=== PATIENT | female | born 1980 | race Caucasian/White ===

== ENCOUNTER 2020-02-05 23:47 | Inpatient (IN) ==
[2020-02-06 00:34] LABS: Basophils # (auto) 0.03 K/uL (0-0.2); Basophils % (auto) 0.3 %; Eosinophils # (auto) 0.27 K/uL (0-0.5); Eosinophils % (auto) 2.9 %; Hematocrit (blood only) 38.9 % (37-47); Hemoglobin 13.4 g/dL (12.0-16.0); Immature Granulocytes # (auto) 0.02 K/uL (0.00-0.02); Immature Granulocytes % (auto) 0.2 %; Lymphocytes # (auto) 3.35 K/uL (1.2-3.4); Lymphocytes % (auto) 35.7 %; Mean Corpuscular Hemoglobin 31.2 pg (25-34); Mean Corpuscular Hgb Conc 34.4 g/dL (32-36); Mean Corpuscular Volume 90.7 fL (80-100); Mean Platelet Volume 9.8 fL (7.4-10.4); Monocytes # (auto) 1.17 K/uL (0.11-0.59); Monocytes % (auto) 12.5 %; Neutrophils # (auto) 4.55 K/uL (1.4-6.5); Neutrophils % (auto) 48.4 %; Platelet Count 234 K/uL (130-400); RDW Coefficient of Variation 12.5 % (11.5-14.5); RDW Standard Deviation 41.2 fL (36.4-46.3); Red Blood Count 4.29 M/uL (4.2-5.4); White Blood Count 9.39 K/uL (4.8-10.8)
[2020-02-06 00:49] LABS: Appearance Urine Cloudy (Clear); Bacteria Urine Automated 1+ (Negative); Bilirubin Urine Negative (Negative); Blood Urine Negative (Negative); Color Urine Yellow; Epithelial Cell Urine Auto >30 /lpf (0-5); Glucose Urine UA Negative (Negative); Ketones Urine Negative (Negative); Leukocyte Esterase Urine Negative (Negative); Nitrite Urine Negative (Negative); Protein Urine Negative (Negative); Specific Gravity Urine 1.023 (1.000-1.030); Urobilinogen Urine Negative (Negative)
[2020-02-06 00:51] LABS: Albumin Level 4.1 gm/dl (3.4-5.0); BUN Creatinine Ratio 16.3 (10-20); Calcium 9.5 mg/dl (8.5-10.1); Creatinine Clr Calc Pharmacy 91.7 ml/min; Est GFR (African American) 98.6; Est GFR (Non-African American) 85.1; Potassium 3.8 mmol/L (3.5-5.1)
[2020-02-06 01:02] LABS: Albumin Globulin Ratio 1.1 (0.9-2); Bilirubin,Total 0.3 mg/dl (0.2-1); Globulin 3.9 gm/dl (2.5-4.0); Thyroid Stimulating Hormone 3.1 uIu/ml (0.300-4.500)
[2020-02-06 01:10] LABS: RBC Urine Automated 0-4 /hpf (0-4)
[2020-02-06 01:25] LABS: Amphetamines+Metham, Urine Neg (Neg); Barbiturates, Urine Neg (Neg); Benzodiazepine, Urine Neg (Neg); Cocaine, Urine Neg (Neg); MDMA (Ecstacy), Urine Neg (Neg); Methadone, Urine Neg (Neg); Opiate, Urine Neg (Neg); Phencyclidine, Urine Neg (Neg)
[2020-02-06 01:40] LABS: Acetaminophen < 2 ug/ml (10-30); Salicylate 2.8 mg/dl (2.8-20)
--- NOTE | 2020-02-06 02:32 | Emergency Department Note ---
History of Present Illness General Chief complaint: Mental Health Evaluation Stated complaint: mental health Source: patient and RN notes reviewed Mode of arrival: EMS Limitations: no limitations History of Present Illness Provider complaint: Suicidal Maximum Pain Intensity: 3 This patient is a 39-year-old female who presents to the emergency department with complaints of depression and suicidal ideation. Patient states she has intentions of overdosing on pills. Patient states she has had a suicide in the past but it was years ago. She was recently admitted to the [facility] last month, per her account. Patient denies any excessive medication ingestions, alcohol or substance abuse tonight. She denies any recent illnesses, fever, chest pain. 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 and A total of 10 systems reviewed and were otherwise negative Physical Exam Vital Signs Vital Signs - 24 hr 02/05/20 23:49 02/06/20 01:53 Temperature 36.9 C Temperature Source Oral Pulse Rate 80 Pulse Rate [Right] 75 Respiratory Rate 20 16 Respiratory Effort / Characteristics Non-Labored Spontaneous Non-Labored Spontaneous Respiratory Depth Normal Normal Blood Pressure 119/85 Blood Pressure [Left Arm] 104/77 Blood Pressure Mean 96 Blood Pressure Mean [Left Arm] 86 Blood Pressure Position [Left Arm] Sitting Pulse Oximetry 97 98 Oxygen Delivery Method Room Air Room Air Sepsis Action Taken by Nursing No Action Required Vital signs reviewed. General: Chronically ill-appearing 39-year-old female, no significant distress HEENT: No scleral icterus, PERRLA, neck supple. Atraumatic. Cardiovascular: Regular rate and rhythm, no extra sounds. Pulmonary: Clear to auscultation bilaterally, normal work of breathing. Abdomen: Soft, nontender, nondistended, positive bowel sounds. Musculoskeletal: Atraumatic, no peripheral edema. Neurologic: Patient awake alert and oriented x 3 Psych: Positive SI, negative HI Skin: Warm, dry, no rash Course Administered Medications Trazodone HCl (Desyrel) 50 mg PO HS LESTER Stop: 03/07/20 04:00 Last Admin: 02/06/20 04:56 Dose: Not Given Documented by: [id number] Medical Decision Making Differential Diagnosis Differential diagnosis: Etiologies such as psychiatric disorder, infection, hypoglycemia, electrolyte abnormalities, cardiac sources, intracerebral event, toxicological process, neurologic disorder, as well as others were entertained. Home Medications Current Medication List: was personally reviewed by me Laboratory Data Attestation: I reviewed the patient's lab results. Result diagrams: 02/06/20 00:19 02/06/20 00:19 Lab Results 02/06/20 02/06/20 02/06/20 Range/Units 00:19 00:19 00:19 WBC 9.39 (4.8-10.8) K/uL RBC 4.29 (4.2-5.4) M/uL Hgb 13.4 (12.0-16.0) g/dL Hct 38.9 (37-47) % MCV 90.7 (80-100) fL MCH 31.2 (25-34) pg MCHC 34.4 (32-36) g/dL RDW Std Deviation 41.2 (36.4-46.3) fL RDW Coeff of Megan 12.5 (11.5-14.5) % Plt Count 234 (130-400) K/uL MPV 9.8 (7.4-10.4) fL Immature Gran % (Auto) 0.2 % Neut % (Auto) 48.4 % Lymph % (Auto) 35.7 % [place] % (Auto) 12.5 % Eos % (Auto) 2.9 % Baso % (Auto) 0.3 % Immature Gran # (Auto) 0.02 (0.00-0.02) K/uL Neut # (Auto) 4.55 (1.4-6.5) K/uL Lymph # (Auto) 3.35 (1.2-3.4) K/uL [place] # (Auto) 1.17 H (0.11-0.59) K/uL Eos # (Auto) 0.27 (0-0.5) K/uL Baso # (Auto) 0.03 (0-0.2) K/uL Sodium 139 (136-145) mmol/L Potassium 3.8 (3.5-5.1) mmol/L Chloride 110 H (98-107) mmol/L Carbon Dioxide 22 (21-32) mmol/L Anion Gap 7.0 (3-11) BUN 14 (7-18) mg/dl Creatinine 0.85 (0.6-1.2) mg/dl Est Cr Clr Drug Dosing 91.7 ml/min Est GFR ( Amer) 98.6 Est GFR (Non-Af Amer) 85.1 BUN/Creatinine Ratio 16.3 (10-20) Glucose 91 (70-99) mg/dl Calcium 9.5 (8.5-10.1) mg/dl Total Bilirubin 0.3 (0.2-1) mg/dl AST 12 L (15-37) U/L ALT 29 (12-78) U/L Alkaline Phosphatase 64 (45-117) U/L Total Protein 8.0 (6.4-8.2) gm/dl Albumin 4.1 (3.4-5.0) gm/dl Globulin 3.9 (2.5-4.0) gm/dl Albumin/Globulin Ratio 1.1 (0.9-2) TSH 3.100 (0.300-4.500) uIu/ml Urine Color Urine Appearance (Clear) Urine pH (4.5-7.5) Ur Specific [place] (1.000-1.030) Urine Protein (Negative) Urine Glucose (UA) (Negative) Urine Ketones (Negative) Urine Blood (Negative) Urine Nitrite (Negative) Urine Bilirubin (Negative) Urine Urobilinogen (Negative) Ur Leukocyte Esterase (Negative) Urine WBC (Auto) (0-5) /hpf Urine RBC (Auto) (0-4) /hpf U Hyaline Cast (Auto) (0-5) /lpf U Epithel Cells (Auto) (0-5) /lpf Urine Bacteria (Auto) (Negative) Urine Yeast POC Ur Test (NEG) Salicylates 2.8 (2.8-20) mg/dl Urine Opiates Screen (Neg) Ur Methadone, Qual (Neg) Acetaminophen < 2 L (10-30) ug/ml Urine Barbiturates (Neg) Ur Phencyclidine (PCP) (Neg) U Amphetamin/Meth Scrn (Neg) MDMA (Ecstasy) Screen (Neg) U Benzodiazepines Scrn (Neg) Ur Cocaine Metabolite (Neg) U Marijuana (THC) Screen (Neg) Ethyl Alcohol mg/dL (0-3) mg/dl 02/06/20 02/06/20 02/06/20 Range/Units 00:19 00:30 00:30 WBC (4.8-10.8) K/uL RBC (4.2-5.4) M/uL Hgb (12.0-16.0) g/dL Hct (37-47) % MCV (80-100) fL MCH (25-34) pg MCHC (32-36) g/dL RDW Std Deviation (36.4-46.3) fL RDW Coeff of Megan (11.5-14.5) % Plt Count (130-400) K/uL MPV (7.4-10.4) fL Immature Gran % (Auto) % Neut % (Auto) % Lymph % (Auto) % [place] % (Auto) % Eos % (Auto) % Baso % (Auto) % Immature Gran # (Auto) (0.00-0.02) K/uL Neut # (Auto) (1.4-6.5) K/uL Lymph # (Auto) (1.2-3.4) K/uL [place] # (Auto) (0.11-0.59) K/uL Eos # (Auto) (0-0.5) K/uL Baso # (Auto) (0-0.2) K/uL Sodium (136-145) mmol/L Potassium (3.5-5.1) mmol/L Chloride (98-107) mmol/L Carbon Dioxide (21-32) mmol/L Anion Gap (3-11) BUN (7-18) mg/dl Creatinine (0.6-1.2) mg/dl Est Cr Clr Drug Dosing ml/min Est GFR ( Amer) Est GFR (Non-Af Amer) BUN/Creatinine Ratio (10-20) Glucose (70-99) mg/dl Calcium (8.5-10.1) mg/dl Total Bilirubin (0.2-1) mg/dl AST (15-37) U/L ALT (12-78) U/L Alkaline Phosphatase (45-117) U/L Total Protein (6.4-8.2) gm/dl Albumin (3.4-5.0) gm/dl Globulin (2.5-4.0) gm/dl Albumin/Globulin Ratio (0.9-2) TSH (0.300-4.500) uIu/ml Urine Color Yellow Urine Appearance Cloudy A (Clear) Urine pH 5.0 (4.5-7.5) Ur Specific [place] 1.023 (1.000-1.030) Urine Protein Negative (Negative) Urine Glucose (UA) Negative (Negative) Urine Ketones Negative (Negative) Urine Blood Negative (Negative) Urine Nitrite Negative (Negative) Urine Bilirubin Negative (Negative) Urine Urobilinogen Negative (Negative) Ur Leukocyte Esterase Negative (Negative) Urine WBC (Auto) 1-5 (0-5) /hpf Urine RBC (Auto) 0-4 (0-4) /hpf U Hyaline Cast (Auto) 1-5 (0-5) /lpf U Epithel Cells (Auto) >30 H (0-5) /lpf Urine Bacteria (Auto) 1+ H (Negative) Urine Yeast Not Reportable POC Ur Test (NEG) Salicylates (2.8-20) mg/dl Urine Opiates Screen Neg (Neg) Ur Methadone, Qual Neg (Neg) Acetaminophen (10-30) ug/ml Urine Barbiturates Neg (Neg) Ur Phencyclidine (PCP) Neg (Neg) U Amphetamin/Meth Scrn Neg (Neg) MDMA (Ecstasy) Screen Neg (Neg) U Benzodiazepines Scrn Neg (Neg) Ur Cocaine Metabolite Neg (Neg) U Marijuana (THC) Screen Neg (Neg) Ethyl Alcohol mg/dL < 3.0 (0-3) mg/dl 02/06/20 Range/Units 00:30 WBC (4.8-10.8) K/uL RBC (4.2-5.4) M/uL Hgb (12.0-16.0) g/dL Hct (37-47) % MCV (80-100) fL MCH (25-34) pg MCHC (32-36) g/dL RDW Std Deviation (36.4-46.3) fL RDW Coeff of Megan (11.5-14.5) % Plt Count (130-400) K/uL MPV (7.4-10.4) fL Immature Gran % (Auto) % Neut % (Auto) % Lymph % (Auto) % [place] % (Auto) % Eos % (Auto) % Baso % (Auto) % Immature Gran # (Auto) (0.00-0.02) K/uL Neut # (Auto) (1.4-6.5) K/uL Lymph # (Auto) (1.2-3.4) K/uL [place] # (Auto) (0.11-0.59) K/uL Eos # (Auto) (0-0.5) K/uL Baso # (Auto) (0-0.2) K/uL Sodium (136-145) mmol/L Potassium (3.5-5.1) mmol/L Chloride (98-107) mmol/L Carbon Dioxide (21-32) mmol/L Anion Gap (3-11) BUN (7-18) mg/dl Creatinine (0.6-1.2) mg/dl Est Cr Clr Drug Dosing ml/min Est GFR ( Amer) Est GFR (Non-Af Amer) BUN/Creatinine Ratio (10-20) Glucose (70-99) mg/dl Calcium (8.5-10.1) mg/dl Total Bilirubin (0.2-1) mg/dl AST (15-37) U/L ALT (12-78) U/L Alkaline Phosphatase (45-117) U/L Total Protein (6.4-8.2) gm/dl Albumin (3.4-5.0) gm/dl Globulin (2.5-4.0) gm/dl Albumin/Globulin Ratio (0.9-2) TSH (0.300-4.500) uIu/ml Urine Color Urine Appearance (Clear) Urine pH (4.5-7.5) Ur Specific [place] (1.000-1.030) Urine Protein (Negative) Urine Glucose (UA) (Negative) Urine Ketones (Negative) Urine Blood (Negative) Urine Nitrite (Negative) Urine Bilirubin (Negative) Urine Urobilinogen (Negative) Ur Leukocyte Esterase (Negative) Urine WBC (Auto) (0-5) /hpf Urine RBC (Auto) (0-4) /hpf U Hyaline Cast (Auto) (0-5) /lpf U Epithel Cells (Auto) (0-5) /lpf Urine Bacteria (Auto) (Negative) Urine Yeast POC Ur Test NEG (NEG) Salicylates (2.8-20) mg/dl Urine Opiates Screen (Neg) Ur Methadone, Qual (Neg) Acetaminophen (10-30) ug/ml Urine Barbiturates (Neg) Ur Phencyclidine (PCP) (Neg) U Amphetamin/Meth Scrn (Neg) MDMA (Ecstasy) Screen (Neg) U Benzodiazepines Scrn (Neg) Ur Cocaine Metabolite (Neg) U Marijuana (THC) Screen (Neg) Ethyl Alcohol mg/dL (0-3) mg/dl Blood Pressure Blood Pressure Findings: Normal blood pressure Blood Pressure Disposition: did not require urgent referral MDM Narrative This patient was medically evaluated and cleared for psychiatric evaluation. Patient was seen by the patient case coordinator and referred to [facility] for inpatient management of her depression/suicidal ideation. The patient has been accepted on a voluntary basis. Patient is aware of the plan and agrees. Impression & Plan Suicidal ideation, Depression Discharge Plan Visit Data *Final* Discharge Date/Time: 02/06/20 03:34 Chief Complaint: Mental Health Evaluation Stated Complaint: mental health ED Provider: Ankita Clark Discharge Problem: Suicidal ideation, Depression Patient Disposition: Admitted As Inpatient Discharge Instructions Interventions: ED Discharge Assessment Last Done: 02/06/20 03:34 Discharge Problem: Depression Qualifiers: Depression Type: unspecified Qualified Code(s): F32.9 - Major depressive disorder, single episode, unspecified
[2020-02-06] MEDS ORDERED: MAGNESIUM HYDROXIDE SUSP 30 ML UDC PO PRN (03:18)
[2020-02-06] MEDS ORDERED: BISMUTH SUBSALICYLATE PER ML OMNICELL CHARGE PO PRN (03:18)
[2020-02-06] MEDS ORDERED: ACETAMINOPHEN 325 MG TAB PO PRN (03:18)
[2020-02-06] MEDS ORDERED: SODIUM CHLORIDE 0.65% NA SOLN 45 ML (OCEAN) PRN (03:18)
[2020-02-06] MEDS ORDERED: ALUMINUM/MAGNESIUM SUSP 30 ML UDC PO PRN (03:18)
[2020-02-06] MEDS ORDERED: BENZTROPINE MESYLATE 1 MG TAB PO PRN (03:55)
[2020-02-06] MEDS ORDERED: haloperidoL 5 MG TAB PO PRN (03:55)
[2020-02-06] MEDS: TRAZODONE HCL 50 MG TAB PO SCH ×3 (04:56→22:49)
--- NOTE | 2020-02-06 08:24 | History & Physical ---
Date of Service February 06, 2020 Impression / Recommendations Impression 39-year-old female with a history of schizoaffective disorder bipolar type and multiple previous psychiatric hospitalizations at other facilities who presented with worsening mood and suicidal thoughts and was admitted voluntarily. She was just discharged from the [facility] about 2 weeks ago, and is a very limited historian. She appears cognitively impaired, possibly borderline no actual functioning. She is unable to contract for safety outside of the hospital and inpatient treatment is medically necessary. It will be very helpful to get collateral information from outpatient providers, friends, or family, as she has not been treated here before and we do not know her treatment history. (1) Schizoaffective disorder, bipolar type: 02/05 -current episode depressed. Poorly able to describe symptoms, time course, and stressors. -Records from [facility] reviewed; attempt to get outpatient records, but it appears she has been seen at multiple places recently and we will need to clarify this. Attempt to get collateral from her roommate or other friend or family member. -Continue most recent known psychotropic medications (from [facility] discharge 01/16/2020, while awaiting more recent outpatient records): Propanolol 10 mg daily for anxiety, trazodone 50 mg at bedtime (with additional 50 mg dose if needed for insomnia), and trihexyphenidyl 2 mg daily. We will need to contact her pharmacy to clarify the dose of her Prolixin decanoate and that she got it yesterday. -Patient is unable to provide any information about past med trials, so we will attempt to get additional records. -Coordinate care with her rehabilitation case coordinator, Koki -Continue inpatient psychiatric treatment on a 201 voluntary commitment. Encourage group attendance and participation, work on healthy coping skills and discharge safety plan. (2) Suicidal ideation: Every 15 minute checks for safety. Work on healthy coping skills and discharge safety plan. Recommend family meeting with her roommate or other support. (3) GERD (gastroesophageal reflux disease): Continue home dose of pantoprazole (4) Nicotine dependence: Offer nicotine replacement for cravings, ongoing smoking cessation education, outpatient follow-up with her psychiatrist. Risk Factors Assessment Male: No : Yes Do You Have Access To A Gun?: No Health Problems: Yes Mental Health Diagnoses: Yes Substance Use Disorders: No Previous Attempt: Yes Family History of Suicide: No Previous Psychiatric Hospitalization: Yes Hopelessness: Yes Smoker: Yes Protective Factors Assessment : No Responsible for Young Children: No Employed: No Stable Relationships: No Supportive Family: No Good Rapport with Provider: No Psychiatric History Identifying Data GELACIO DUVALL is a 39-year-old F who currently lives in [place], has a history of schizophrenia, and was admitted on 02/06/20 03:18 on a 201 voluntary commitment for suicidal ideation. Chief Complaint "Um...depression". History of Present Illness Patient presented to the ER in the head school custodian hours reporting depression and suicidal ideation with a plan to overdose on pills. She was just hospitalized at the [facility] and discharged about 2 weeks ago. She endorsed depressive symptoms, said she had been feeling this way for them months to years, since "my ex left me." She complains of daily panic attacks, poor concentration, poor sleep, and constant worry. She cannot remember the name of her psychiatrist or therapist, and said she did not think her medications were working. She had difficulty providing historical information about current and past treatment, gave inconsistent answers, and was disheveled and malodorous. Admission labs notable for normal CBC, TSH, and CMP, UA with > 30 epithelial cells and 1+ bacteria, negative test and UDS. She signed in voluntarily. Attempted to see her multiple times this morning; initially she was somnolent and poorly engaged, gave inconsistent reports, at times refusing to answer questions. She was seen later in the day after she was up and out of bed, but continued to be a very poor historian. She says she has been depressed "for a while," and is unable to state how long she was at home after discharge from [facility] (per records, was just discharged 01/16/2020). He states initially after discharge her mood was "all right," and is unable to identify any stressors that led to worsening mood. With repeat questioning, she states "people," and was very resistant to giving additional information, stating "my friends, they stress me out." She says that her friend drove her to our emergency room because "[facility] told me they had a psychiatric center here." She is unable to clarify this statement. She denies suicidal ideation at the time of my exam, but admits she was suicidal yesterday. Despite asking the question several times in different ways, she would not give further information about her suicidal thoughts, and just kept repeating "nothing right now." She reports medication compliance, but does not know the names of any of her medications. She says she got a shot at a pharmacy yesterday. She denies hallucinations, but reports experiencing them in the past. She endorses paranoia, but denies other psychotic and first rank symptoms. She denies concerns that others would harm her, and denies thoughts of harming others. She endorses depressed mood, crying spells, anhedonia, low energy, and poor sleep. She denies changes in appetite and feelings of guilt. She feels safe in the hospital. She is unable to identify any goals for treatment, or primary support/person she would like to involve in a meeting. Past Psychiatric History Previous Psych History: Records from most recent admission at [facility] reviewed: Admitted 12/21/2019, discharged 01/16/2020. Diagnosed with schizoaffective disorder bipolar type. On admission, reported seeing Dr. Melgar at [facility] in [place], and therapist Lilian at [facility]. On discharge, she was scheduled to see Dr. Helm and Gladys, a health supervisor customer services, at [facility]. She presented with auditory hallucinations of voices, depression, and suicidality. She had been hospitalized recently at the [facility], but no dates were provided. She reported 2 weeks of worsening depression, and SI with a plan to overdose. She reported command auditory hallucinations and paranoia. She reported initial psychiatric diagnosis in her 20s, and denied new stressors, other than the COVID pandemic. She appeared overly medicated and sedated (admission medications were propanolol 10 mg twice daily for anxiety, trazodone 50 mg at bedtime, Benadryl 50 mg at bedtime, Topamax 100 mg daily for mood, Prolixin 2.5 mg at bedtime for psychosis, and Prolixin Decanoate 75 mg, next dose due 01/07/2020). Benadryl and trazodone, were discontinued, Artane 2 mg daily was started, and p.o. Prolixin was increased to 5 mg at bedtime. She received Prolixin decanoate 25 mg on 01/02/2020, and again on 01/15/2020, with instructions to get it every 3 weeks after discharge. History of self-injurious behavior by burning herself, last episode years ago. Current Psychiatric Diagnosis: Schizophrenia Outpatient Services: [facility] - Dr. Netta Melgar psychiatry, therapist AUBREY through [facility]. Previous Psych Admissions: Multiple previous hospitalizations, most recently at the [facility] 12/2019 [facility] Do You Have Access To A Gun?: No History of Previous Suicide Attempt: Yes Describe Attempts in the Past: "I overdosed a long time ago" Past Medication Trials: Patient unable to list any previous medications. External medication history indicates she was prescribed aripiprazole 10 mg daily and 11/16/2019, and fluphenazine 5 mg in 12/17/2019. [facility] records indicate history of trazodone, Benadryl, propanolol, Topamax, Prolixin p.o. and decanoate. Allergies Allergy/AdvReac Type Severity Reaction Status Date / Time PCN Allergy Unknown UNKNOWN Uncoded 10/31/08 01:46 Home Medications Home Medications Medication Instructions Recorded Confirmed Type fluphenazine decanoate 25 mg IM 02/06/20 History pantoprazole 40 mg PO DAILY 02/06/20 02/06/20 History propranolol 10 mg PO DAILY 02/06/20 02/06/20 History topiramate 100 mg PO DAILY 02/06/20 02/06/20 History trazodone 50 mg PO HS 02/06/20 02/06/20 History trihexyphenidyl 2 mg PO DAILY 02/06/20 02/06/20 History Family History Family History of: None Alcohol History Hx of Alcohol Use Over the Past 12 Months: No AUDIT Total Score: 0 Smoking Use Have You Smoked or Used Tobacco Products in the Last 30 Days: Yes tobacco type: cigarettes Smoking Status: Current every day smoker Smoking packs per day: 2 Substance History Hx of Prescription Med Misuse Over the Past 12 Months: No Hx of Over the Counter Med Misuse Over the Past 12 Months: No Hx of Inhalent Misuse Over the Past 12 Months: No Hx of Organic Substance Use Over the Past 12 Months: No Hx of Illegal Substances/Street Drug Use Over Past 12 Months: No Problems as a Result of Past Substance Use: None Identified Personal History Living Arrangements: Home Living Arrangements Comments: in [place], in an apartment with a roommate Childhood: Patient reports she grew up in [place], and has 2 brothers and 2 or 3 sisters (she was unable to clarify). When asked about her parents, she stated "I don't got none." She reports both parents are , and could give no further information about them. Highest Grade Completed Comment: 11th grade, was in special education Employment Status: Disabled Marital Status: Single Number Of Children: 14-year-old son who lives with his father; she has no contact. Beliefs That Will Affect Care: None Current Legal Problems: No Hx Legal Problems: No Hx Traumatic Life Events: No Patient History Medical History (Updated 02/06/20 @ 14:05 by Rolanda Ohara MD) GERD (gastroesophageal reflux disease) Nicotine dependence Schizoaffective disorder, bipolar type Suicidal ideation (Acute) Social History Preferred Language: Eritrean Communication Ability: Effective Customs And Immigration Officer Required: No Beliefs That Will Affect Care: None Feels Safe at Home: Yes Smoking Status: Current every day smoker Tobacco Type: cigarettes ; Review of Systems Review of Systems: Unobtainable due to mental health condition (Patient does not answer, or answers with unrelated information) Physical Exam Psychiatric: Orientation: oriented to person and oriented to place Limited cooperation, poor historian Apperance: appropriately dressed Appears older than stated age, hair dyed, limited grooming. Seated on the edge of the bed in no acute distress. Poor eye contact, he is directed at the floor Eye Contact: + poor eye contact Motor Behavior: steady gait and station and no abnormal motor movements Slowed speech Affect: + blunted affect Mood: + depressed mood Thought Process: + concrete thought process Short, vague answers; resistant to clarifying/expanding on statements when asked Thought Content: + paranoid and + hopelessness Suicidal Thoughts: + reports suicidal thoughts Homicidal Thoughts: denies homicidal thoughts Hallucinations: no auditory hallucinations and no visual hallucinations Cognition: + recent memory not intact, + remote memory not intact and + attention not intact Estimated Intelligence: + below average estimated intelligence Insight: + impaired insight Judgement: + impaired judgement Vital Signs (Past 24 Hours): Last Vital Signs Temp 36.4 C L 02/06/20 06:38 Pulse 72 02/06/20 06:38 Resp 18 02/06/20 06:38 BP 94/63 L 02/06/20 06:38 Pulse Ox 96 02/06/20 03:34 Exam Statement: A physical exam was performed in the ER prior to admission to the unit by Dr. Clark. I accept that physical as correct/medical clearance for the inpatient physical exam. Results & Data ([facility]) Laboratory Results Laboratory Results - last 24 hr 02/06/20 02/06/20 02/06/20 00:19 00:19 00:19 WBC 9.39 RBC 4.29 Hgb 13.4 Hct 38.9 MCV 90.7 MCH 31.2 MCHC 34.4 RDW Std Deviation 41.2 RDW Coeff of Megan 12.5 Plt Count 234 MPV 9.8 Immature Gran % (Auto) 0.2 Neut % (Auto) 48.4 Lymph % (Auto) 35.7 Burke % (Auto) 12.5 Eos % (Auto) 2.9 Baso % (Auto) 0.3 Immature Gran # (Auto) 0.02 Neut # (Auto) 4.55 Lymph # (Auto) 3.35 Burke # (Auto) 1.17 H Eos # (Auto) 0.27 Baso # (Auto) 0.03 Sodium 139 Potassium 3.8 Chloride 110 H Carbon Dioxide 22 Anion Gap 7.0 BUN 14 Creatinine 0.85 Est Cr Clr Drug Dosing 91.7 Est GFR ( Amer) 98.6 Est GFR (Non-Af Amer) 85.1 BUN/Creatinine Ratio 16.3 Glucose 91 Calcium 9.5 Total Bilirubin 0.3 AST 12 L ALT 29 Alkaline Phosphatase 64 Total Protein 8.0 Albumin 4.1 Globulin 3.9 Albumin/Globulin Ratio 1.1 TSH 3.100 Urine Color Urine Appearance Urine pH Ur Specific [place] Urine Protein Urine Glucose (UA) Urine Ketones Urine Blood Urine Nitrite Urine Bilirubin Urine Urobilinogen Ur Leukocyte Esterase Urine WBC (Auto) Urine RBC (Auto) U Hyaline Cast (Auto) U Epithel Cells (Auto) Urine Bacteria (Auto) Urine Yeast POC Ur Test Salicylates 2.8 Urine Opiates Screen Ur Methadone, Qual Acetaminophen < 2 L Urine Barbiturates Ur Phencyclidine (PCP) U Amphetamin/Meth Scrn MDMA (Ecstasy) Screen U Benzodiazepines Scrn Ur Cocaine Metabolite U Marijuana (THC) Screen Ethyl Alcohol mg/dL 02/06/20 02/06/20 02/06/20 00:19 00:30 00:30 WBC RBC Hgb Hct MCV MCH MCHC RDW Std Deviation RDW Coeff of Megan Plt Count MPV Immature Gran % (Auto) Neut % (Auto) Lymph % (Auto) Burke % (Auto) Eos % (Auto) Baso % (Auto) Immature Gran # (Auto) Neut # (Auto) Lymph # (Auto) Burke # (Auto) Eos # (Auto) Baso # (Auto) Sodium Potassium Chloride Carbon Dioxide Anion Gap BUN Creatinine Est Cr Clr Drug Dosing Est GFR ( Amer) Est GFR (Non-Af Amer) BUN/Creatinine Ratio Glucose Calcium Total Bilirubin AST ALT Alkaline Phosphatase Total Protein Albumin Globulin Albumin/Globulin Ratio TSH Urine Color Yellow Urine Appearance Cloudy A Urine pH 5.0 Ur Specific [place] 1.023 Urine Protein Negative Urine Glucose (UA) Negative Urine Ketones Negative Urine Blood Negative Urine Nitrite Negative Urine Bilirubin Negative Urine Urobilinogen Negative Ur Leukocyte Esterase Negative Urine WBC (Auto) 1-5 Urine RBC (Auto) 0-4 U Hyaline Cast (Auto) 1-5 U Epithel Cells (Auto) >30 H Urine Bacteria (Auto) 1+ H Urine Yeast Not Reportable POC Ur Test Salicylates Urine Opiates Screen Neg Ur Methadone, Qual Neg Acetaminophen Urine Barbiturates Neg Ur Phencyclidine (PCP) Neg U Amphetamin/Meth Scrn Neg MDMA (Ecstasy) Screen Neg U Benzodiazepines Scrn Neg Ur Cocaine Metabolite Neg U Marijuana (THC) Screen Neg Ethyl Alcohol mg/dL < 3.0 02/06/20 00:30 WBC RBC Hgb Hct MCV MCH MCHC RDW Std Deviation RDW Coeff of Megan Plt Count MPV Immature Gran % (Auto) Neut % (Auto) Lymph % (Auto) Burke % (Auto) Eos % (Auto) Baso % (Auto) Immature Gran # (Auto) Neut # (Auto) Lymph # (Auto) Burke # (Auto) Eos # (Auto) Baso # (Auto) Sodium Potassium Chloride Carbon Dioxide Anion Gap BUN Creatinine Est Cr Clr Drug Dosing Est GFR ( Amer) Est GFR (Non-Af Amer) BUN/Creatinine Ratio Glucose Calcium Total Bilirubin AST ALT Alkaline Phosphatase Total Protein Albumin Globulin Albumin/Globulin Ratio TSH Urine Color Urine Appearance Urine pH Ur Specific [place] Urine Protein Urine Glucose (UA) Urine Ketones Urine Blood Urine Nitrite Urine Bilirubin Urine Urobilinogen Ur Leukocyte Esterase Urine WBC (Auto) Urine RBC (Auto) U Hyaline Cast (Auto) U Epithel Cells (Auto) Urine Bacteria (Auto) Urine Yeast POC Ur Test NEG Salicylates Urine Opiates Screen Ur Methadone, Qual Acetaminophen Urine Barbiturates Ur Phencyclidine (PCP) U Amphetamin/Meth Scrn MDMA (Ecstasy) Screen U Benzodiazepines Scrn Ur Cocaine Metabolite U Marijuana (THC) Screen Ethyl Alcohol mg/dL Current Inpatient Medications Current Inpatient Medications: Current Inpatient Medications Acetaminophen (Tylenol) 650 mg PO Q4H PRN PRN Reason: Headache or Minor Fever Stop: 03/07/20 03:17 Al Hydrox/Mg Hydrox/Simethicone (Maalox) 30 ml PO Q4H PRN PRN Reason: GI Upset Stop: 03/07/20 03:17 Benztropine Mesylate (Cogentin) 1 mg PO Q6H PRN PRN Reason: EPS Stop: 03/07/20 03:59 Bismuth Subsalicylate (Kaopectate) 15 ml PO PRN PRN PRN Reason: Loose Stool Stop: 03/07/20 03:17 Haloperidol (Haldol) 5 mg PO Q6H PRN PRN Reason: Agitation/Anxiety Stop: 03/07/20 03:54 Hydroxyzine HCl (Vistaril) 50 mg PO HSZ PRN PRN Reason: Insomnia Stop: 03/07/20 03:17 Hydroxyzine HCl (Vistaril) 25 mg PO Q4H PRN PRN Reason: Anxiety Stop: 03/07/20 03:17 Magnesium Hydroxide (Milk Of Magnesia) 30 ml PO DAILY PRN PRN Reason: Constipation Stop: 03/07/20 03:17 Miscellaneous (Remove Nicoderm Patch) 1 ea N/A DAILY@0859 [facility] Stop: 03/07/20 08:58 Nicotine (Nicoderm Cq) 21 mg TD QAM [facility] Stop: 03/07/20 08:59 Nicotine Polacrilex (Nicorette 2mg) 1 piece MT PRN PRN PRN Reason: Nicotine Withdrawal Stop: 03/07/20 03:17 Propranolol HCl (Inderal) 10 mg PO PM [facility] Stop: 03/07/20 20:59 Sodium Chloride ([place] Nasal) 1 - 2 sprays NA PRN PRN PRN Reason: Nasal Dryness/Congestion Stop: 03/07/20 03:17 Topiramate (Topamax) 50 mg PO PM [facility] Stop: 03/07/20 20:59 Trazodone HCl (Desyrel) 50 mg PO HS [facility] Stop: 03/07/20 04:00 Last Admin: 02/06/20 04:56 Dose: Not Given Documented by:
[2020-02-06] MEDS: NICOTINE 21 MG/24 HR TDSY TD SCH (09:01)
[2020-02-06] MEDS ORDERED: TOPIRAMATE 50 MG TAB PO SCH (21:00)
[2020-02-06] MEDS: PROPRANOLOL HCL 10 MG TAB PO SCH (21:32)
[2020-02-07] MEDS: PANTOprazole 40 MG TAB PO SCH (08:48)
[2020-02-07] MEDS: TRIHEXYPHENIDYL HCL 2 MG TAB PO SCH ×2 (08:48→09:15)
[2020-02-07] MEDS: NICOTINE 21 MG/24 HR TDSY TD SCH (08:53)
--- NOTE | 2020-02-07 12:08 | Psychiatric Progress Note ---
Date of Service February 07, 2020 Impression / Recommendations Impression 39-year-old female with a history of schizoaffective disorder bipolar type and multiple previous psychiatric hospitalizations at other facilities who presented with worsening mood and suicidal thoughts and was admitted voluntarily. She was just discharged from the [facility] about 2 weeks ago, and is a very limited historian. She appears cognitively impaired, possibly borderline intellectual functioning vs mild ID. She is unable to contract for safety outside of the hospital and inpatient treatment is medically necessary. It will be very helpful to get collateral information from outpatient providers, friends, or family, as she has not been treated here before and we do not know her treatment history. (1) Schizoaffective disorder, bipolar type: 02/05 -current episode depressed. Poorly able to describe symptoms, time course, and stressors. -Records from [place] reviewed; attempt to get outpatient records, but it appears she has been seen at multiple places recently and we will need to clarify this. Attempt to get collateral from her roommate or other friend or family member. -Continue most recent known psychotropic medications (from [facility] discharge 01/16/2020, while awaiting more recent outpatient records): Propanolol 10 mg daily for anxiety, trazodone 50 mg at bedtime (with additional 50 mg dose if needed for insomnia), and trihexyphenidyl 2 mg daily. We will need to contact her pharmacy to clarify the dose of her Prolixin decanoate and that she got it yesterday. -Patient is unable to provide any information about past med trials, so we will attempt to get additional records. -Coordinate care with her ed case manager, Koki -Continue inpatient psychiatric treatment on a 201 voluntary commitment. Encourage group attendance and participation, work on healthy coping skills and discharge safety plan. 02/06 - continue current medication management. - Pharmacy, [facility] at [place], confirms that she is on Prolixin Decanoate 25 mg IM, trazodone 25 mg nightly, propranolol 10 mg twice daily, dependent Hydramine 50 mg nightly, potassium chloride 10 mEq daily. Her last Prolixin Decanoate 25 mg IM was filled on February 04 and she picked it up on February 05. - Encourage group attendance and participation but patient is extremely withdrawn socially. - Nursing staff was notified to check her fluid intake because she does not seem to be comfortable asking other people what she needs. -Summary of Psychiatric [facility] by [facility] is under subjective. (2) Suicidal ideation: Every 15 minute checks for safety. Work on healthy coping skills and discharge safety plan. Recommend family meeting with her roommate or other support. (3) GERD (gastroesophageal reflux disease): Continue home dose of pantoprazole (4) Nicotine dependence: Offer nicotine replacement for cravings, ongoing smoking cessation education, outpatient follow-up with her psychiatrist. Risk Factors Assessment Male: No : Yes Do You Have Access To A Gun?: No Health Problems: Yes Mental Health Diagnoses: Yes Substance Use Disorders: No Previous Attempt: Yes Family History of Suicide: No Previous Psychiatric Hospitalization: Yes Hopelessness: Yes Smoker: Yes Protective Factors Assessment : No Responsible for Young Children: No Employed: No Stable Relationships: No Supportive Family: No Good Rapport with Provider: No Interval History Chief Complaint "I'm too nervous to talk to a new person". Review of Systems Notes Constitutional: denied cardiovascular: denied Respiratory: denied GI: denied Neurologic: denied Psychiatric: denies symptoms other than stated above Remainder of 10 body systems also reviewed and denied other than noted above. Sleep Information Total Hours of Sleep: 11.25 Meal Information Percent Meal Consumed - Breakfast: 10 Percent Meal Consumed - Lunch: 100 Percent Meal Consumed - Dinner: 100 Subjective Subjective Patient was seen & assessed and interval progress reviewed with nursing and social work. Staff reports that she has been isolative, staying in her room and refusing all meetings or group activities. Slept more than 11 hours and refused Artane this morning since it makes her too tired and she was already tired. Patient was seen today to assess progress since admission. She wanted to lie in her bed and reported that she feels tired and thirsty. She states that she hasn't drunk water since the admission because she doesn't know how to get water from water dispenser or use a water mug. On the assessment, she kept changing her words. At first, she said she couldn't sleep last night but when she was asked further about her sleep quality, she stated that she slept all day and all night yesterday. Also at first she told me that she didn't take any medications last night but changed her words soon, saying that she took her her medications. She says consistently she got a Prolixin Decanoate injection prior to admission and when she was asked further, she wanted to end the conversation and hid her face under the blanket, saying "I'm too nervous to talk to a new person." Psychiatric evaluation performed by Dr. Lion Avila from [facility]TT program on Jan 22 2020 reviewed. The patient referred to [facility] program when she was discharged from the [facility] on January 24, 2020. Her Dx includes schizoaffective disorder, bipolar type; Mild intellectual disability; Hx of substance abuse, unspecified. She is familiar to this program from September 12 to September 14 and November 2016 to June 2018 and then she dropped out of the program since then. She had 5 hospitalizations since fall 2017 and the recent 3 [id number] hospitalizations, were at the [facility] in the past 2 months and the last ones were 11/27/19-12/21/19 and 12/21/19-01/16/20, struggling with COVID-19 restrictions since her usual coping skills I the community and her contacts are inaccessible to her. Prolixin Decanoate initiated before she was discharge on 12/21/19 and her next injection was scheduled on 02/06/20. Her medication list includes Prolixin Decanoate IM 25 every 3 weeks for psychosis, Benadryl 25 mg for EPS, Artane 2 mg for EPS, Trazodone 25 mg for insomnia, Topamax 100 mg qHS for mood, and Propranolol 10 mg BID for anxiety at discharge on 01/16/20. Main barriers to her treatment are poor med compliance, difficulty keeping appointments, avoiding contacts with others, tendency to be referential vs paranoid but if she takes medications, her symptoms improve. Currently living with a housemate, Raven - who has also mild cognitive impairment, in an apartment in [place] and a 15 yo sone lives with his biological father, not in contact with her son. She has 3 brothers and 2 sisters but not in contact with them. Parents about 20 years ago at the age of 19 and one of her sisters recently with brain aneurism. She has experienced AH re: her sister's voice. She has tremors in the UEs, some parkinsonism as a mild pill-rolling component and diffuse more rapid component without TD on the assessment. She used drugs and alcohol in the past but not recently. Per Candy, she gets a phone call from "friends" occasionally and they borrow money from her. Her recent 600 stimulus check is gone even though she hasn't used them much. Physical Exam Psychiatric Orientation: + guarded Apperance: + disheveled lying in the bed Eye Contact: + poor eye contact Motor Behavior: + tremor soft speech and not more than a couple of words Affect: + depressed affect, + anxious affect and + blunted affect Mood: + depressed mood Thought Process: + thought process not clear or coherent and + thought association not intact Thought Content: + cognitive distortions Homicidal Thoughts: denies homicidal thoughts could not figure out if she has any AH or VH today because she doesn't want to answer Cognition: + attention not intact and + language not intact Estimated Intelligence: + below average estimated intelligence Insight: + impaired insight Judgement: + impaired judgement Vital Signs (Past 24 Hours) Last Vital Signs Temp 36.8 C 02/07/20 06:37 Pulse 75 02/07/20 06:38 Resp 18 02/07/20 06:37 BP 107/69 02/07/20 06:38 Pulse Ox 96 02/06/20 03:34 Results & Data (U) Current Inpatient Medications Current Inpatient Medications: Current Inpatient Medications Acetaminophen (Tylenol) 650 mg PO Q4H PRN PRN Reason: Headache or Minor Fever Stop: 03/07/20 03:17 Al Hydrox/Mg Hydrox/Simethicone (Maalox) 30 ml PO Q4H PRN PRN Reason: GI Upset Stop: 03/07/20 03:17 Benztropine Mesylate (Cogentin) 1 mg PO Q6H PRN PRN Reason: EPS Stop: 03/07/20 03:59 Bismuth Subsalicylate (Kaopectate) 15 ml PO PRN PRN PRN Reason: Loose Stool Stop: 03/07/20 03:17 Haloperidol (Haldol) 5 mg PO Q6H PRN PRN Reason: Agitation/Anxiety Stop: 03/07/20 03:54 Hydroxyzine HCl (Vistaril) 50 mg PO HSZ PRN PRN Reason: Insomnia Stop: 03/07/20 03:17 Hydroxyzine HCl (Vistaril) 25 mg PO Q4H PRN PRN Reason: Anxiety Stop: 03/07/20 03:17 Magnesium Hydroxide (Milk Of Magnesia) 30 ml PO DAILY PRN PRN Reason: Constipation Stop: 03/07/20 03:17 Miscellaneous (Remove Nicoderm Patch) 1 ea N/A DAILY@0859 [facility] Stop: 03/07/20 08:58 Last Admin: 02/07/20 08:53 Dose: Not Given Documented by: Nicotine (Nicoderm Cq) 21 mg TD QAM [facility] Stop: 03/07/20 08:59 Last Admin: 02/07/20 08:53 Dose: Not Given Documented by: Nicotine Polacrilex (Nicorette 2mg) 1 piece MT PRN PRN PRN Reason: Nicotine Withdrawal Stop: 03/07/20 03:17 Pantoprazole Sodium (Protonix) 40 mg PO DAILY [facility] Stop: 03/08/20 08:59 Last Admin: 02/07/20 08:48 Dose: 40 mg Documented by: Propranolol HCl (Inderal) 10 mg PO PM [facility] Stop: 03/07/20 20:59 Last Admin: 02/06/20 21:32 Dose: 10 mg Documented by: Sodium Chloride ([place] Nasal) 1 - 2 sprays NA PRN PRN PRN Reason: Nasal Dryness/Congestion Stop: 03/07/20 03:17 Trazodone HCl (Desyrel) 50 mg PO HS [facility] Stop: 03/07/20 04:00 Last Admin: 02/06/20 22:49 Dose: Not Given Documented by: Trihexyphenidyl HCl (Artane) 2 mg PO DAILY [facility] Stop: 03/08/20 08:59 Last Admin: 02/07/20 09:15 Dose: Not Given Documented by: Mental Health & Subst Abuse Tx Therapist Name of Therapist: Lilian wallace [place] Cart Driver Name of Cart Driver: Koki PULIDO Post Discharge Appointments Primary Care Physician Name Of Family Doctor: I don't know
[2020-02-07] MEDS: NICOTINE POLACRILEX 2 MG GUM MT PRN (15:14)
[2020-02-07] MEDS: TRAZODONE HCL 50 MG TAB PO SCH ×2 (21:13→21:19)
[2020-02-07] MEDS: PROPRANOLOL HCL 10 MG TAB PO SCH (21:13)
[2020-02-08] MEDS: NICOTINE POLACRILEX 2 MG GUM MT PRN ×2 (09:12→13:20)
[2020-02-08] MEDS: PANTOprazole 40 MG TAB PO SCH (09:12)
[2020-02-08] MEDS: TRIHEXYPHENIDYL HCL 2 MG TAB PO SCH ×2 (09:13→21:22)
[2020-02-08] MEDS: NICOTINE 21 MG/24 HR TDSY TD SCH (09:14)
--- NOTE | 2020-02-08 09:47 | Psychiatric Progress Note ---
Date of Service February 08, 2020 Impression / Recommendations Impression 39-year-old female with a history of schizoaffective disorder bipolar type and multiple previous psychiatric hospitalizations at other facilities who presented with worsening mood and suicidal thoughts and was admitted voluntarily. She was just discharged from the [facility] about 2 weeks ago, and is a very limited historian. She appears cognitively impaired, possibly borderline intellectual functioning vs mild ID. She is unable to contract for safety outside of the hospital and inpatient treatment is medically necessary. It will be very helpful to get collateral information from outpatient providers, friends, or family, as she has not been treated here before and we do not know her treatment history. (1) Schizoaffective disorder, bipolar type: 02/05 -current episode depressed. Poorly able to describe symptoms, time course, and stressors. -Records from [place] reviewed; attempt to get outpatient records, but it appears she has been seen at multiple places recently and we will need to clarify this. Attempt to get collateral from her roommate or other friend or family member. -Continue most recent known psychotropic medications (from [facility] discharge 01/16/2020, while awaiting more recent outpatient records): Propanolol 10 mg daily for anxiety, trazodone 50 mg at bedtime (with additional 50 mg dose if needed for insomnia), and trihexyphenidyl 2 mg daily. We will need to contact her pharmacy to clarify the dose of her Prolixin decanoate and that she got it yesterday. -Patient is unable to provide any information about past med trials, so we will attempt to get additional records. -Coordinate care with her case management director, Koki -Continue inpatient psychiatric treatment on a 201 voluntary commitment. Encourage group attendance and participation, work on healthy coping skills and discharge safety plan. 02/06 - continue current medication management. - Pharmacy, [facility] at [place], confirms that she is on Prolixin Decanoate 25 mg IM, trazodone 25 mg nightly, propranolol 10 mg twice daily, dependent Hydramine 50 mg nightly, potassium chloride 10 mEq daily. Her last Prolixin Decanoate 25 mg IM was filled on February 04 and she picked it up on February 05. - Encourage group attendance and participation but patient is extremely withdrawn socially. - Nursing staff was notified to check her fluid intake because she does not seem to be comfortable asking other people what she needs. -Summary of Psychiatric evaluation by Dr. Lion Avila from [facility] program on Jan 22 2020 is under subjective. 02/07 -Continue current medication regimen. -Collect collateral from DDTT program and case management director to find out when she got her injection. -Her recent worsening depressive symptoms might be due to low serum level of Pr olixin Decanoate because she was admitted 1 day after her injection per patient if she informs us of correct information. -Patient tolerated a group exercise activity this morning and physical-activity related groups will be helpful for her to be engaged in interaction with peers and to promote her physical acitivities during the day since patient complains of insomnia at night. -Artane in the morning has been declined due to fatigue and it is scheduled to HS. Patient was advised to ask for Cogentin if she develops worsening involuntary movements in extremities since her tremors and involuntary movements in upper extremities improved today but Cogentin will be scheduled to 0.5 mg twice a day if she has problem requesting as needed medications. AIMS=0 and no TD noted. (2) Suicidal ideation: Every 15 minute checks for safety. Work on healthy coping skills and discharge safety plan. Recommend family meeting with her roommate or other support. (3) GERD (gastroesophageal reflux disease): Continue home dose of pantoprazole (4) Nicotine dependence: Offer nicotine replacement for cravings, ongoing smoking cessation education, outpatient follow-up with her psychiatrist. Risk Factors Assessment Male: No : Yes Do You Have Access To A Gun?: No Health Problems: Yes Mental Health Diagnoses: Yes Substance Use Disorders: No Previous Attempt: Yes Family History of Suicide: No Previous Psychiatric Hospitalization: Yes Hopelessness: Yes Smoker: Yes Protective Factors Assessment : No Responsible for Young Children: No Employed: No Stable Relationships: No Supportive Family: No Good Rapport with Provider: No Interval History Chief Complaint "I drank water". Review of Systems Notes Constitutional: denied cardiovascular: denied Respiratory: denied GI: denied Neurologic: denied Psychiatric: denies symptoms other than stated above Remainder of 10 body systems also reviewed and denied other than noted above. Sleep Information Total Hours of Sleep: 7 Meal Information Percent Meal Consumed - Breakfast: 10 Percent Meal Consumed - Lunch: 75 Percent Meal Consumed - Dinner: 100 Subjective Subjective Patient was seen & assessed and interval progress reviewed with treatment team. Staff reports that she has been isolative in her room and refusing all unit programmings. She found on the floor last night after she fell down without loss of consciousness or injury and she got come down pretty quickly after a moment of shakiness and crying. Patient was seen today to assess progress since admission. Patient greeted me with a smile, lying in the bed in her room and pointed out her mug, saying "I drank water. "She reports that she feels pretty good today even though she feels tired, which is better today though, and that she had poor sleep last night. She remembers that she fell down last night, saying "I was nervous and anxious and I pulled down occasionally when I feel anxious ". She denies any injury, including soreness/contusions, head injury or loss of consciousness. She states that she wanted to be hospitalized since she has been feeling more depressed recently without any reasons, which she cannot provide, and having problems sleeping. She denies any suicidal ideations prior to admission and currently and also denies any auditory or visual hallucinations. She admits to improvement in her mood since the admission and wonders when she can go home. When she was asked about her friend, Bharath, she states that she does not want to get with him and he is old, in his 60s. Even though she has not taken any Artane or Benadryl for EPS since the admission, she admits to improvement in her tremors and involuntary movements in her upper extremities today. She also informed this provider that she participated in a group activity this morning and enjoyed hitting balloons. She was encouraged to attend/participate in group activities or to walk around the hallways in the unit. Physical Exam Psychiatric Orientation: alert, oriented x 3, cooperative and + guarded (her engagement in the conversation improved today but still guarded) Apperance: appropriately dressed and + disheveled Eye Contact: + poor eye contact Motor Behavior: + tremor (noticeably improved tremors in UEs without significant involuntary movement); n EPS soft speech, and short answers but more engaged today Affect: no depressed affect and no anxious affect pleasant and smiling throughout the conversation Mood: + depressed mood (improvement noted) Thought Process: thought association intact; thought process not circumstantial Thought Content: not paranoid, no cognitive distortions, no delusions and no hopelessness Suicidal Thoughts: denies suicidal thoughts Homicidal Thoughts: denies homicidal thoughts Hallucinations: no auditory hallucinations and no visual hallucinations Cognition: recent memory grossly intact Estimated Intelligence: + below average estimated intelligence Insight: + limited insight Judgement: + limited judgement Vital Signs (Past 24 Hours) Last Vital Signs Temp 36.8 C 02/08/20 06:35 Pulse 78 02/08/20 06:35 Resp 18 02/08/20 06:35 BP 124/84 02/08/20 06:35 Pulse Ox 96 02/06/20 03:34 Results & Data ([facility]) Current Inpatient Medications Current Inpatient Medications: Current Inpatient Medications Acetaminophen (Tylenol) 650 mg PO Q4H PRN PRN Reason: Headache or Minor Fever Stop: 03/07/20 03:17 Al Hydrox/Mg Hydrox/Simethicone (Maalox) 30 ml PO Q4H PRN PRN Reason: GI Upset Stop: 03/07/20 03:17 Benztropine Mesylate (Cogentin) 1 mg PO Q6H PRN PRN Reason: EPS Stop: 03/07/20 03:59 Bismuth Subsalicylate (Kaopectate) 15 ml PO PRN PRN PRN Reason: Loose Stool Stop: 03/07/20 03:17 Haloperidol (Haldol) 5 mg PO Q6H PRN PRN Reason: Agitation/Anxiety Stop: 03/07/20 03:54 Hydroxyzine HCl (Vistaril) 50 mg PO HSZ PRN PRN Reason: Insomnia Stop: 03/07/20 03:17 Hydroxyzine HCl (Vistaril) 25 mg PO Q4H PRN PRN Reason: Anxiety Stop: 03/07/20 03:17 Magnesium Hydroxide (Milk Of Magnesia) 30 ml PO DAILY PRN PRN Reason: Constipation Stop: 03/07/20 03:17 Miscellaneous (Remove Nicoderm Patch) 1 ea N/A DAILY@0859 [facility] Stop: 03/07/20 08:58 Last Admin: 02/08/20 09:12 Dose: Not Given Documented by: Nicotine (Nicoderm Cq) 21 mg TD QAM [facility] Stop: 03/07/20 08:59 Last Admin: 02/08/20 09:14 Dose: Not Given Documented by: Nicotine Polacrilex (Nicorette 2mg) 1 piece MT PRN PRN PRN Reason: Nicotine Withdrawal Stop: 03/07/20 03:17 Last Admin: 02/08/20 09:12 Dose: 1 piece Documented by: Pantoprazole Sodium (Protonix) 40 mg PO DAILY [facility] Stop: 03/08/20 08:59 Last Admin: 02/08/20 09:12 Dose: 40 mg Documented by: Propranolol HCl (Inderal) 10 mg PO PM [facility] Stop: 03/07/20 20:59 Last Admin: 02/07/20 21:13 Dose: 10 mg Documented by: Sodium Chloride ([place] Nasal) 1 - 2 sprays NA PRN PRN PRN Reason: Nasal Dryness/Congestion Stop: 03/07/20 03:17 Trazodone HCl (Desyrel) 25 mg PO HS [facility] Stop: 03/09/20 21:59 Trihexyphenidyl HCl (Artane) 2 mg PO DAILY [facility] Stop: 03/08/20 08:59 Last Admin: 02/08/20 09:13 Dose: Not Given Documented by: Mental Health & Subst Abuse Tx Therapist Name of Therapist: Lilian wallace [place] Receiving Tank Operator Name of Receiving Tank Operator: Koki PULIDO Post Discharge Appointments Primary Care Physician Name Of Family Doctor: I don't know
[2020-02-08] MEDS: PROPRANOLOL HCL 10 MG TAB PO SCH (21:22)
[2020-02-08] MEDS: TRAZODONE HCL 50 MG TAB PO SCH (21:23)
[2020-02-09] MEDS: PANTOprazole 40 MG TAB PO SCH (09:01)
[2020-02-09] MEDS: NICOTINE 21 MG/24 HR TDSY TD SCH (09:05)
[2020-02-09] MEDS: NICOTINE POLACRILEX 2 MG GUM MT PRN ×2 (12:55→18:15)
[2020-02-09] MEDS ORDERED: TRAZODONE HCL 50 MG TAB PO PRN (14:26)
[2020-02-09] MEDS: TRIHEXYPHENIDYL HCL 2 MG TAB PO SCH ×2 (15:16→21:07)
--- NOTE | 2020-02-09 19:37 | Psychiatric Progress Note ---
Date of Service February 09, 2020 Impression / Recommendations Impression 39-year-old female with a history of schizoaffective disorder bipolar type and multiple previous psychiatric hospitalizations at other facilities who presented with worsening mood and suicidal thoughts and was admitted voluntarily. She was just discharged from the [facility] about 2 weeks ago, and is a very limited historian. She appears cognitively impaired, possibly borderline intellectual functioning vs mild ID. She is unable to contract for safety outside of the hospital and inpatient treatment is medically necessary. It will be very helpful to get collateral information from outpatient providers, friends, or family, as she has not been treated here before and we do not know her treatment history. pt reports some improvement in her sleep and in her thinking but also reports some ongoing disorganization. pt continues to refuse trial of atypical antipsychotic (1) Schizoaffective disorder, bipolar type: 02/05 -current episode depressed. Poorly able to describe symptoms, time course, and stressors. -Records from [place] reviewed; attempt to get outpatient records, but it appears she has been seen at multiple places recently and we will need to silver fy this. Attempt to get collateral from her roommate or other friend or family member. -Continue most recent known psychotropic medications (from [facility] discharge 01/16/2020, while awaiting more recent outpatient records): Propanolol 10 mg daily for anxiety, trazodone 50 mg at bedtime (with additional 50 mg dose if needed for insomnia), and trihexyphenidyl 2 mg daily. We will need to contact her pharmacy to clarify the dose of her Prolixin decanoate and that she got it yesterday. -Patient is unable to provide any information about past med trials, so we will attempt to get additional records. -Coordinate care with her casey saw operator, Koki -Continue inpatient psychiatric treatment on a 201 voluntary commitment. Encourage group attendance and participation, work on healthy coping skills and discharge safety plan. 02/06 - continue current medication management. - Pharmacy, [facility] at [place], confirms that she is on Prolixin Decanoate 25 mg IM, trazodone 25 mg nightly, propranolol 10 mg twice daily, dependent Hydramine 50 mg nightly, potassium chloride 10 mEq daily. Her last Prolixin Decanoate 25 mg IM was filled on February 04 and she picked it up on February 05. - Encourage group attendance and participation but patient is extremely withdrawn socially. - Nursing staff was notified to check her fluid intake because she does not seem to be comfortable asking other people what she needs. -Summary of Psychiatric evaluation by Dr. Lion Avila from [facility] DDTT program on Jan 22 2020 is under subjective. 02/07 -Continue current medication regimen. -Collect collateral from DDTT program and casey saw operator to find out when she got her injection. -Her recent worsening depressive symptoms might be due to low serum level of Prolixin Decanoate because she was admitted 1 day after her injection per patient if she informs us of correct information. -Patient tolerated a group exercise activity this morning and physical-activity related groups will be helpful for her to be engaged in interaction with peers and to promote her physical acitivities during the day since patient complains of insomnia at night. -Artane in the morning has been declined due to fatigue and it is scheduled to HS. Patient was advised to ask for Cogentin if she develops worsening involuntary movements in extremities since her tremors and involuntary movements in upper extremities improved today but Cogentin will be scheduled to 0.5 mg twice a day if she has problem requesting as needed medications. AIMS=0 and no TD noted. 02/08 -pt refuses to take benzotropine doses but comfortale with artane. given this and given s/e from prolxiin added 1mg artane am dose to her artane 2mg hs dose (pt not willing to take 2nd dose of artane earlier then hs dosing) - given middle insomnia concerns, raised trazodone to 50mg hs -maintained rest of treatment plan unchanged (2) Suicidal ideation: Every 15 minute checks for safety. Work on healthy coping skills and discharge safety plan. Recommend family meeting with her roommate or other support. (3) GERD (gastroesophageal reflux disease): Continue home dose of pantoprazole (4) Nicotine dependence: Offer nicotine replacement for cravings, ongoing smoking cessation education, outpatient follow-up with her psychiatrist. Risk Factors Assessment Male: No : Yes Do You Have Access To A Gun?: No Health Problems: Yes Mental Health Diagnoses: Yes Substance Use Disorders: No Previous Attempt: Yes Family History of Suicide: No Previous Psychiatric Hospitalization: Yes Hopelessness: Yes Smoker: Yes Protective Factors Assessment : No Responsible for Young Children: No Employed: No Stable Relationships: No Supportive Family: No Good Rapport with Provider: No Interval History Chief Complaint "got only some sleep last night so not fully clearheaded". Review of Systems Sleep Information Total Hours of Sleep: 6.75 Meal Information Percent Meal Consumed - Breakfast: 100 Percent Meal Consumed - Lunch: 100 Percent Meal Consumed - Dinner: 100 Subjective Subjective Patient was seen & assessed and interval progress reviewed with nursing and social work. she indicated impairments of sleep including last night leads her to be not that clearheaded but also indicates slept better last night and that middle insomnia was short but couple hours long while focusing on how short it was. pt fixated on how Inderal was making her tired and how its ok now that its moved to night, pt refuses to take benztropine but comfortable with Artane and open to adding Artane dose in am to Artane Hs dose if not as strong as the Hs dose. pt refused to have 2nd dose of Artane be earlier then hs. pt not open to other medication adjustments. c/o tremor as s/e from Prolixin. pt exhibits disorganized thinking and some insight,albeit it only fair at best) into this at times. denied SI or HI. Physical Exam Psychiatric Orientation: alert, oriented x 3, oriented to person, oriented to place, cooperative and + guarded (her engagement in the conversation improved today but still guarded) Apperance: appropriately dressed Eye Contact: + fair eye contact Motor Behavior: + tremor (noticeably improved tremors in UEs without significant involuntary movement) Affect: + blunted affect; no depressed affect and no anxious affect Mood: + depressed mood (improvement noted) Thought Process: + concrete thought process and thought association intact; + thought process not clear or coherent and thought process not circumstantial Thought Content: not paranoid, no cognitive distortions, no delusions and no hopelessness Suicidal Thoughts: denies suicidal thoughts Homicidal Thoughts: denies homicidal thoughts Hallucinations: no auditory hallucinations and no visual hallucinations Cognition: recent memory grossly intact; + remote memory not intact, + attention not intact and + language not intact Estimated Intelligence: + below average estimated intelligence Insight: + limited insight Judgement: + limited judgement Vital Signs (Past 24 Hours) Last Vital Signs Temp 36.6 C 02/09/20 07:08 Pulse 70 02/09/20 07:09 Resp 16 02/09/20 07:08 BP 97/67 L 02/09/20 07:09 Pulse Ox 96 02/06/20 03:34 Results & Data ([facility]) Current Inpatient Medications Current Inpatient Medications: Current Inpatient Medications Acetaminophen (Tylenol) 650 mg PO Q4H PRN PRN Reason: Headache or Minor Fever Stop: 03/07/20 03:17 Al Hydrox/Mg Hydrox/Simethicone (Maalox) 30 ml PO Q4H PRN PRN Reason: GI Upset Stop: 03/07/20 03:17 Benztropine Mesylate (Cogentin) 1 mg PO Q6H PRN PRN Reason: EPS Stop: 03/07/20 03:59 Bismuth Subsalicylate (Kaopectate) 15 ml PO PRN PRN PRN Reason: Loose Stool Stop: 03/07/20 03:17 Haloperidol (Haldol) 5 mg PO Q6H PRN PRN Reason: Agitation/Anxiety Stop: 03/07/20 03:54 Hydroxyzine HCl (Vistaril) 50 mg PO HSZ PRN PRN Reason: Insomnia Stop: 03/07/20 03:17 Hydroxyzine HCl (Vistaril) 25 mg PO Q4H PRN PRN Reason: Anxiety Stop: 03/07/20 03:17 Magnesium Hydroxide (Milk Of Magnesia) 30 ml PO DAILY PRN PRN Reason: Constipation Stop: 03/07/20 03:17 Last Admin: 02/09/20 17:24 Dose: 30 ml Documented by: Miscellaneous (Remove Nicoderm Patch) 1 ea N/A DAILY@0859 [facility] Stop: 03/07/20 08:58 Last Admin: 02/09/20 09:05 Dose: Not Given Documented by: Nicotine (Nicoderm Cq) 21 mg TD QAM [facility] Stop: 03/07/20 08:59 Last Admin: 02/09/20 09:05 Dose: Not Given Documented by: Nicotine Polacrilex (Nicorette 2mg) 1 piece MT PRN PRN PRN Reason: Nicotine Withdrawal Stop: 03/07/20 03:17 Last Admin: 02/09/20 18:15 Dose: 1 piece Documented by: Pantoprazole Sodium (Protonix) 40 mg PO DAILY [facility] Stop: 03/08/20 08:59 Last Admin: 02/09/20 09:01 Dose: 40 mg Documented by: Propranolol HCl (Inderal) 10 mg PO PM [facility] Stop: 03/07/20 20:59 Last Admin: 02/08/20 21:22 Dose: 10 mg Documented by: Sodium Chloride (Du[place]in Nasal) 1 - 2 sprays NA PRN PRN PRN Reason: Nasal Dryness/Congestion Stop: 03/07/20 03:17 Trazodone HCl (Desyrel) 25 mg PO HS [facility] Stop: 03/09/20 21:59 Last Admin: 02/08/20 21:23 Dose: 25 mg Documented by: Trazodone HCl (Desyrel) 25 mg PO HS PRN PRN Reason: insomnia Stop: 03/10/20 21:59 Trihexyphenidyl HCl (Artane) 2 mg PO HS [facility] Stop: 03/09/20 21:59 Last Admin: 02/08/20 21:22 Dose: 2 mg Documented by: Trihexyphenidyl HCl (Artane) 1 mg PO QAM [facility] Stop: 03/10/20 14:44 Last Admin: 02/09/20 15:16 Dose: 1 mg Documented by: Mental Health & Subst Abuse Tx Psychiatrist Name of Psychiatrist: DDTT Program - Dr. Avila Time of Appointment with Psychiatrist: Also part of the tx team: Kel Sanchez, Gladys Palomo, Chrissy Dupree Psychiatric Appointment Comment: Julita Cottrell Therapist Name of Therapist: Aj Quintana Therapist's Therapy Appointment Comment: [address], [place] [id number] Movie Machine Operator Name of Movie Machine Operator: MARC Mitchell Case Management Appointment Comment: Post Discharge Appointments Primary Care Physician Name Of Family Doctor: I don't know Contact Information Discharge Discharge Address: [address], [place] [address]
[2020-02-09] MEDS: TRAZODONE HCL 50 MG TAB PO SCH (21:07)
[2020-02-09] MEDS: PROPRANOLOL HCL 10 MG TAB PO SCH (21:08)
[2020-02-10] MEDS: TRIHEXYPHENIDYL HCL 2 MG TAB PO SCH ×2 (08:49→21:48)
[2020-02-10] MEDS: PANTOprazole 40 MG TAB PO SCH (08:49)
[2020-02-10] MEDS: NICOTINE 21 MG/24 HR TDSY TD SCH (08:50)
--- NOTE | 2020-02-10 15:31 | Psychiatric Progress Note ---
Date of Service February 10, 2020 Impression / Recommendations Impression 39-year-old female with a history of schizoaffective disorder bipolar type and multiple previous psychiatric hospitalizations at other facilities who presented with worsening mood and suicidal thoughts and was admitted voluntarily. She was just discharged from the [facility] about 2 weeks ago, and is a very limited historian. She appears cognitively impaired, possibly borderline intellectual functioning vs mild ID. She is unable to contract for safety outside of the hospital and inpatient treatment is medically necessary. It will be very helpful to get collateral information from outpatient providers, friends, or family, as she has not been treated here before and we do not know her treatment history. pt reports some improvement in her sleep and in her thinking but also reports some ongoing disorganization. pt continues to refuse trial of atypical antipsychotic (1) Schizoaffective disorder, bipolar type: 02/05 -current episode depressed. Poorly able to describe symptoms, time course, and stressors. -Records from [place] reviewed; attempt to get outpatient records, but it appears she has been seen at multiple places recently and we will need to silver fy this. Attempt to get collateral from her roommate or other friend or family member. -Continue most recent known psychotropic medications (from [facility] discharge 01/16/2020, while awaiting more recent outpatient records): Propanolol 10 mg daily for anxiety, trazodone 50 mg at bedtime (with additional 50 mg dose if needed for insomnia), and trihexyphenidyl 2 mg daily. We will need to contact her pharmacy to clarify the dose of her Prolixin decanoate and that she got it yesterday. -Patient is unable to provide any information about past med trials, so we will attempt to get additional records. -Coordinate care with her pillowcase maker, Koki -Continue inpatient psychiatric treatment on a 201 voluntary commitment. Encourage group attendance and participation, work on healthy coping skills and discharge safety plan. 02/06 - continue current medication management. - Pharmacy, [facility] at [place], confirms that she is on Prolixin Decanoate 25 mg IM, trazodone 25 mg nightly, propranolol 10 mg twice daily, dependent Hydramine 50 mg nightly, potassium chloride 10 mEq daily. Her last Prolixin Decanoate 25 mg IM was filled on February 04 and she picked it up on February 05. - Encourage group attendance and participation but patient is extremely withdrawn socially. - Nursing staff was notified to check her fluid intake because she does not seem to be comfortable asking other people what she needs. -Summary of Psychiatric evaluation by Dr. Lion Avila from [facility] DDTT program on Jan 22 2020 is under subjective. 02/07 -Continue current medication regimen. -Collect collateral from DDTT program and pillowcase maker to find out when she got her injection. -Her recent worsening depressive symptoms might be due to low serum level of Prolixin Decanoate because she was admitted 1 day after her injection per patient if she informs us of correct information. -Patient tolerated a group exercise activity this morning and physical-activity related groups will be helpful for her to be engaged in interaction with peers and to promote her physical acitivities during the day since patient complains of insomnia at night. -Artane in the morning has been declined due to fatigue and it is scheduled to HS. Patient was advised to ask for Cogentin if she develops worsening involuntary movements in extremities since her tremors and involuntary movements in upper extremities improved today but Cogentin will be scheduled to 0.5 mg twice a day if she has problem requesting as needed medications. AIMS=0 and no TD noted. 02/08 -pt refuses to take benzotropine doses but comfortable with Artane. given this and given s/e from Prolixin added 1mg Artane am dose to her Artane 2mg has dose (pt not willing to take 2nd dose of arcane earlier then has dosing) - given middle insomnia concerns, raised trazodone to 25mg has plus 25mg has pen insomnia over pt iwillingnes to try higher dose but only 25mg of it being as a scheduled dose -maintained rest of treatment plan unchanged 02/09 -stopped prn vsitaril doses added benadryl 50mg hs prn insomnia changed trazodone to 50mg hs scheduled preparing for meeting with DDTT staff and likely upcoming discharge (2) Suicidal ideation: Every 15 minute checks for safety. Work on healthy coping skills and discharge safety plan. Recommend family meeting with her roommate or other support. (3) GERD (gastroesophageal reflux disease): Continue home dose of pantoprazole (4) Nicotine dependence: Offer nicotine replacement for cravings, ongoing smoking cessation education, outpatient follow-up with her psychiatrist. Risk Factors Assessment Male: No : Yes Do You Have Access To A Gun?: No Health Problems: Yes Mental Health Diagnoses: Yes Substance Use Disorders: No Previous Attempt: Yes Family History of Suicide: No Previous Psychiatric Hospitalization: Yes Hopelessness: Yes Smoker: Yes Protective Factors Assessment : No Responsible for Young Children: No Employed: No Stable Relationships: No Supportive Family: No Good Rapport with Provider: No Interval History Chief Complaint "want to take benadryl". Review of Systems Sleep Information Total Hours of Sleep: 4.25 Meal Information Percent Meal Consumed - Breakfast: 100 Percent Meal Consumed - Lunch: 100 Percent Meal Consumed - Dinner: 100 Subjective Subjective Patient was seen & assessed and interval progress reviewed with nursing and social work, pt unwilling to take Vistaril but is seeking to take Benadryl if sm uggles with sleep. pt took 25mg has of trazodone scheduled dose last night but did take the 25mg prn dose as well with soil lame sleep disturbance last night. pt appears to be tolerating the 1mg daytime Artane dosage. pt reports being more clearheaded today. She is hoping to be discharged soon and expressed excitement about potential discharge tomorrow depending on DOTT program meeting expected tomorrow, eating her meals fully. denied SI, denied depressive or anxiety concerns. denied AH or VH. Physical Exam Psychiatric Orientation: alert, oriented x 3, oriented to person and oriented to place Apperance: appropriately dressed and + disheveled Eye Contact: + fair eye contact Motor Behavior: steady gait and station and no abnormal motor movements; n EPS and n tremor (noticeably improved tremors in UEs without significant involuntary movement) Affect: + blunted affect; no depressed affect and no anxious affect Mood: no depressed mood, no anxious mood and no irritable mood Thought Process: + concrete thought process and thought association intact; + thought process not clear or coherent and thought process not circumstantial Thought Content: + cognitive distortions; not paranoid, no delusions and no hopelessness Suicidal Thoughts: denies suicidal thoughts Homicidal Thoughts: denies homicidal thoughts Hallucinations: no auditory hallucinations and no visual hallucinations Cognition: recent memory grossly intact; + remote memory not intact, + attention not intact and + language not intact Estimated Intelligence: + below average estimated intelligence Insight: + limited insight and + impaired insight Judgement: + limited judgement and + impaired judgement Vital Signs (Past 24 Hours) Last Vital Signs Temp 36.6 C 02/10/20 06:00 Pulse 101 H 02/10/20 06:00 Resp 16 02/10/20 06:00 BP 117/76 02/10/20 06:00 Pulse Ox 96 02/06/20 03:34 Results & Data ([facility]) Current Inpatient Medications Current Inpatient Medications: Current Inpatient Medications Acetaminophen (Tylenol) 650 mg PO Q4H PRN PRN Reason: Headache or Minor Fever Stop: 03/07/20 03:17 Al Hydrox/Mg Hydrox/Simethicone (Maalox) 30 ml PO Q4H PRN PRN Reason: GI Upset Stop: 03/07/20 03:17 Benztropine Mesylate (Cogentin) 1 mg PO Q6H PRN PRN Reason: EPS Stop: 03/07/20 03:59 Bismuth Subsalicylate (Kaopectate) 15 ml PO PRN PRN PRN Reason: Loose Stool Stop: 03/07/20 03:17 Diphenhydramine HCl (Benadryl Capsule) 50 mg PO HS PRN PRN Reason: Insomnia Stop: 03/11/20 10:56 Haloperidol (Haldol) 5 mg PO Q6H PRN PRN Reason: Agitation/Anxiety Stop: 03/07/20 03:54 Hydroxyzine HCl (Vistaril) 25 mg PO Q4H PRN PRN Reason: Anxiety Stop: 03/07/20 03:17 Magnesium Hydroxide (Milk Of Magnesia) 30 ml PO DAILY PRN PRN Reason: Constipation Stop: 03/07/20 03:17 Last Admin: 02/09/20 17:24 Dose: 30 ml Documented by: Miscellaneous (Remove Nicoderm Patch) 1 ea N/A DAILY@0859 [facility] Stop: 03/07/20 08:58 Last Admin: 02/10/20 08:50 Dose: Not Given Documented by: Nicotine (Nicoderm Cq) 21 mg TD QAM [facility] Stop: 03/07/20 08:59 Last Admin: 02/10/20 08:50 Dose: Not Given Documented by: Nicotine Polacrilex (Nicorette 2mg) 1 piece MT PRN PRN PRN Reason: Nicotine Withdrawal Stop: 03/07/20 03:17 Last Admin: 02/09/20 18:15 Dose: 1 piece Documented by: Pantoprazole Sodium (Protonix) 40 mg PO DAILY [facility] Stop: 03/08/20 08:59 Last Admin: 02/10/20 08:49 Dose: 40 mg Documented by: Propranolol HCl (Inderal) 10 mg PO PM [facility] Stop: 03/07/20 20:59 Last Admin: 02/09/20 21:08 Dose: 10 mg Documented by: Sodium Chloride ([place] Nasal) 1 - 2 sprays NA PRN PRN PRN Reason: Nasal Dryness/Congestion Stop: 03/07/20 03:17 Trazodone HCl (Desyrel) 25 mg PO HS [facility] Stop: 03/09/20 21:59 Last Admin: 02/09/20 21:07 Dose: 25 mg Documented by: Trazodone HCl (Desyrel) 25 mg PO HS PRN PRN Reason: insomnia Stop: 03/10/20 21:59 Last Admin: 02/10/20 01:03 Dose: 25 mg Documented by: Trihexyphenidyl HCl (Artane) 2 mg PO HS [facility] Stop: 03/09/20 21:59 Last Admin: 02/09/20 21:07 Dose: 2 mg Documented by: Trihexyphenidyl HCl (Artane) 1 mg PO QAM [facility] Stop: 03/10/20 14:44 Last Admin: 02/10/20 08:49 Dose: 1 mg Documented by: Mental Health & Subst Abuse Tx Psychiatrist [facility] - Dr. Avila Time of Appointment with Psychiatrist: Also part of the tx team: Kel Sanchez, Gladys Palomo, Chrissy Dupree Psychiatric Appointment Comment: Julita Cottrell Therapist Name of Therapist: Aj Quintana Therapist's Therapy Appointment Comment: [address], [place] [address] Health Aide Name of Health Aide: MARC Mitchell Phone Number for Health Aide: Case Management Appointment Comment: Will follow up as scheduled Post Discharge Appointments Primary Care Physician Name Of Family Doctor: . Contact Information Discharge Discharge Address: [address] [place] [address], [address], [place] [address]
[2020-02-10] MEDS: PROPRANOLOL HCL 10 MG TAB PO SCH (21:37)
[2020-02-10] MEDS: TRAZODONE HCL 50 MG TAB PO SCH (21:38)
[2020-02-10] MEDS ORDERED: TOPIRAMATE 50 MG TAB PO SCH (22:00)
[2020-02-11] MEDS: PANTOprazole 40 MG TAB PO SCH (08:05)
[2020-02-11] MEDS: TRIHEXYPHENIDYL HCL 2 MG TAB PO SCH (08:05)
[2020-02-11] MEDS: NICOTINE 21 MG/24 HR TDSY TD SCH (08:06)
--- NOTE | 2020-02-11 10:26 | Discharge Summary ---
Date of Service February 11, 2020 History of Present Illness Patient presented to the ER in the [employer] hours reporting depression and suicidal ideation with a plan to overdose on pills. She was just hospitalized at the [facility] and discharged about 2 weeks ago. She endorsed depressive symptoms, said she had been feeling this way for them months to years, since "my ex left me." She complains of daily panic attacks, poor concentration, poor sleep, and constant worry. She cannot remember the name of her psychiatrist or therapist, and said she did not think her medications were working. She had difficulty providing historical information about current and past treatment, gave inconsistent answers, and was disheveled and malodorous. Admission labs notable for normal CBC, TSH, and CMP, UA with > 30 epithelial cells and 1+ bacteria, negative test and UDS. She signed in voluntarily. Atte mpted to see her multiple times this morning; initially she was somnolent and poorly engaged, gave inconsistent reports, at times refusing to answer questions. She was seen later in the day after she was up and out of bed, but continued to be a very poor historian. She says she has been depressed "for a while," and is unable to state how long she was at home after discharge from [facility] (per records, was just discharged 01/16/2020). He states initially after discharge her mood was "all right," and is unable to identify any stressors that led to worsening mood. With repeat questioning, she states "people," and was very resistant to giving additional information, stating "my friends, they stress me out." She says that her friend drove her to our emergency room because "[place] and [place] told me they had a psychiatric center here." She is unable to clarify this statement. She denies suicidal ideation at the time of my exam, but admits she was suicidal yesterday. Despite asking the question several times in different ways, she would not give further information about her suicidal thoughts, and just kept repeating "nothing right now." She reports medication compliance, but does not know the names of any of her medications. She says she got a shot at a pharmacy yesterday. She denies hallucinations, but reports experiencing them in the past. She endorses par anoia, but denies other psychotic and first rank symptoms. She denies concerns that others would harm her, and denies thoughts of harming others. She endorses depressed mood, crying spells, anhedonia, low energy, and poor sleep. She denies changes in appetite and feelings of guilt. She feels safe in the hospital. She is unable to identify any goals for treatment, or primary support/person she would like to involve in a meeting. Physical Exam Psychiatric Orientation: alert and cooperative Apperance: appropriately dressed and appeared stated age Poor dentition, adequate hygiene and grooming Eye Contact: good eye contact Motor Behavior: steady gait and station and no abnormal motor movements Speech: normal rate/rhythm/volume of speech Affect: euthymic affect Laughing and smiling "Really good." Thought Process: goal directed thought process and + concrete thought process Thought Content: reality based without delusions Suicidal Thoughts: denies suicidal thoughts Homicidal Thoughts: denies homicidal thoughts Hallucinations: no auditory hallucinations Cognition: recent memory grossly intact, attention grossly intact and language grossly intact Estimated Intelligence: + below average estimated intelligence Insight: + limited insight Judgement: + limited judgement Vital Signs (Past 24 Hours) Last Vital Signs Temp 36.4 C L 02/11/20 06:42 Pulse 88 02/11/20 06:43 Resp 18 02/11/20 06:42 BP 108/73 02/11/20 06:43 Pulse Ox 96 02/06/20 03:34 Principal Diagnosis Schizoaffective disorder, bipolar type Mild intellectual disability History of substance abuse, unspecified Psychiatric Data The patient was hospitalized for 5 days. She was continued on her home doses of trihexyphenidyl, propanolol, and fluphenazine decanoate. Her trazodone dose was decreased, and topiramate was discontinued due to concerns for worsening cognitive function. She was compliant with medications and took them as prescribed, and appeared to tolerate them well. Records from [facility] program were received and reviewed: she had been referred there on discharge from the [facility] at the end of December. Her diagnoses were confirmed.she had been active and there program from August 2014 - August 2016 and November 2016 - June 2018. She had 5 hospitalizations since fall 2017, and then recently had 3 [id number] hospitalizations at the [facility] (most recently 11/27/19- 12/21/19 and 12/21/19-01/16/20). Stressors include struggling with COVID-19 restrictions since her usual coping skills in the community and her contacts are inaccessible to her. Prolixin Decanoate initiated before she was discharged on 12/21/19 and her next injection was scheduled on 02/06/20. Her medication list includes Prolixin Decanoate IM 25 every 3 weeks for psychosis, Benadryl 25 mg for EPS, Artane 2 mg for EPS, Trazodone 25 mg for insomnia, Topamax 100 mg qHS for mood, and Propranolol 10 mg BID for anxiety at discharge on 01/16/20. Main barriers to her treatment are poor med compliance, difficulty keeping appointments, avoiding contact with others, tendency to be referential vs paranoid; but if she takes medications, her symptoms improve. Currently living with a housemate, Raven, who has also mild cognitive impairment, in an apartment in [facility] and a 15 yo son lives with his biological father, not in contact with her son. She has 3 brothers and 2 sisters but not in contact with them. Parents about 20 years ago at the age of 19 and one of her sisters recently with brain aneurism. She has experienced AH re: her sister's voice. She has tremors in the UEs, some parkinsonism with a mild pill-rolling component and diffuse more rapid component without TD on the assessment. She used drugs and alcohol in the past but not recently. Per Raven, she gets a phone call from "friends" occasionally and they borrow money from her. Her recent $600 stimulus check is gone even though she hasn't been much. During her hospitalization, she was calm and cooperative, took medications as prescribed, and initially declined groups and isolated in her room, but later became more engaged and attended and participated in groups and therapy. She slept a lot for first couple of days on the unit. It was confirmed that she got her Prolixin Decanoate 25 mg injection on 02/05/2020 prior to coming to the hospital. Care was coordinated with her outpatient clinician, Roxanne STRONG, from [facility]. The patient demonstrated improvement in mood, thought process, energy, and resolution of suicidal thoughts. Her affect brightened, and she was observed smiling and laughing with staff and peers. A discharge planning meeting was scheduled with her [facility], Niall Lou [facility] staff, and her insurance compliance analyst for the day of discharge. She was observed to be eating and sleeping well, and tending to ADLs independently. Day of Discharge Assessment Patient reports her mood is "really good," and she feels ready to go home. She denies suicidal thoughts, homicidal thoughts, hallucinations, and paranoia. She denies any safety concerns with discharge. She is looking forward to going home, and states her friend Bharath is already here in the parking lot waiting for her. She plans to "stay closer to [facility], listen to them, stay out of the hospital." She spoke with her rn case management this morning, and says she is working with her get into a [facility] in [place]. In the meantime, she feels safe going home. She denies side effects to medications. Transition of Care Transition Of Care Record: was reviewed with the patient Advance Directives Advance Directives Information Provided: Yes Advance Directives: No Mental Health Advance Directive: No Advance Directives on File: No Living Will: No Power of Blasting Coal Miner: No Advance Directives Reason:: Declines as Mental Health Visit. Risk Factors Assessment Risk factors were mitigated by admission to the inpatient unit, use of medications to target mood and psychotic symptoms, coordination of care with outpatient clinicians, involving her in groups and therapy, working on healthy coping skills and her discharge safety plan, and discharge planning meeting with her outpatient treatment team on the day of discharge. She has demonstrated improvement in mood, resolution of suicidal thoughts, and ability to perform ADLs independently. She is taking medications as prescribed, and indicating willingness to follow-up with outpatient treatment. She is no longer at acute risk of harm to herself, so can be managed as an outpatient at this time. She has not endorsed risk factors indicating risk of harm to others. Male: No : Yes Do You Have Access To A Gun?: No Health Problems: Yes Mental Health Diagnoses: Yes Substance Use Disorders: No Previous Attempt: Yes Family History of Suicide: No Previous Psychiatric Hospitalization: Yes Hopelessness: Yes Smoker: Yes Protective Factors Assessment : No Responsible for Young Children: No Employed: No Stable Relationships: No Supportive Family: No Good Rapport with Provider: No Tobacco Cessation at Discharge Tobacco Cessation Medication Prescribed at Discharge: Offered & Prescribed Practical counseling provided including: recognizing danger situations, developing coping skills and providing basic information about quitting Tobacco Cessation Outpatient Followup: Outpatient referral made to ([facility]) Total Time Total Time Spent: Greater Than 30 Minutes Total Time Includes: Examination of the patient, Discharge Planning and Medication Reconciliation Discharge Data Lab Results 02/06/20 02/06/20 02/06/20 00:19 00:19 00:19 WBC 9.39 RBC 4.29 Hgb 13.4 Hct 38.9 MCV 90.7 MCH 31.2 MCHC 34.4 RDW Std Deviation 41.2 RDW Coeff of Megan 12.5 Plt Count 234 MPV 9.8 Immature Gran % (Auto) 0.2 Neut % (Auto) 48.4 Lymph % (Auto) 35.7 [place] % (Auto) 12.5 Eos % (Auto) 2.9 Baso % (Auto) 0.3 Immature Gran # (Auto) 0.02 Neut # (Auto) 4.55 Lymph # (Auto) 3.35 [place] # (Auto) 1.17 H Eos # (Auto) 0.27 Baso # (Auto) 0.03 Sodium 139 Potassium 3.8 Chloride 110 H Carbon Dioxide 22 Anion Gap 7.0 BUN 14 Creatinine 0.85 Est Cr Clr Drug Dosing 91.7 Est GFR ( Amer) 98.6 Est GFR (Non-Af Amer) 85.1 BUN/Creatinine Ratio 16.3 Glucose 91 Calcium 9.5 Total Bilirubin 0.3 AST 12 L ALT 29 Alkaline Phosphatase 64 Total Protein 8.0 Albumin 4.1 Globulin 3.9 Albumin/Globulin Ratio 1.1 TSH 3.100 Urine Color Urine Appearance Urine pH Ur Specific [place] Urine Protein Urine Glucose (UA) Urine Ketones Urine Blood Urine Nitrite Urine Bilirubin Urine Urobilinogen Ur Leukocyte Esterase Urine WBC (Auto) Urine RBC (Auto) U Hyaline Cast (Auto) U Epithel Cells (Auto) Urine Bacteria (Auto) Urine Yeast POC Ur Test Salicylates 2.8 Urine Opiates Screen Ur Methadone, Qual Acetaminophen < 2 L Urine Barbiturates Ur Phencyclidine (PCP) U Amphetamin/Meth Scrn MDMA (Ecstasy) Screen U Benzodiazepines Scrn Ur Cocaine Metabolite U Marijuana (THC) Screen Ethyl Alcohol mg/dL 02/06/20 02/06/20 02/06/20 00:19 00:30 00:30 WBC RBC Hgb Hct MCV MCH MCHC RDW Std Deviation RDW Coeff of Megan Plt Count MPV Immature Gran % (Auto) Neut % (Auto) Lymph % (Auto) [place] % (Auto) Eos % (Auto) Baso % (Auto) Immature Gran # (Auto) Neut # (Auto) Lymph # (Auto) [place] # (Auto) Eos # (Auto) Baso # (Auto) Sodium Potassium Chloride Carbon Dioxide Anion Gap BUN Creatinine Est Cr Clr Drug Dosing Est GFR ( Amer) Est GFR (Non-Af Amer) BUN/Creatinine Ratio Glucose Calcium Total Bilirubin AST ALT Alkaline Phosphatase Total Protein Albumin Globulin Albumin/Globulin Ratio TSH Urine Color Yellow Urine Appearance Cloudy A Urine pH 5.0 Ur Specific [place] 1.023 Urine Protein Negative Urine Glucose (UA) Negative Urine Ketones Negative Urine Blood Negative Urine Nitrite Negative Urine Bilirubin Negative Urine Urobilinogen Negative Ur Leukocyte Esterase Negative Urine WBC (Auto) 1-5 Urine RBC (Auto) 0-4 U Hyaline Cast (Auto) 1-5 U Epithel Cells (Auto) >30 H Urine Bacteria (Auto) 1+ H Urine Yeast Not Reportable POC Ur Test Salicylates Urine Opiates Screen Neg Ur Methadone, Qual Neg Acetaminophen Urine Barbiturates Neg Ur Phencyclidine (PCP) Neg U Amphetamin/Meth Scrn Neg MDMA (Ecstasy) Screen Neg U Benzodiazepines Scrn Neg Ur Cocaine Metabolite Neg U Marijuana (THC) Screen Neg Ethyl Alcohol mg/dL < 3.0 02/06/20 00:30 WBC RBC Hgb Hct MCV MCH MCHC RDW Std Deviation RDW Coeff of Megan Plt Count MPV Immature Gran % (Auto) Neut % (Auto) Lymph % (Auto) [place] % (Auto) Eos % (Auto) Baso % (Auto) Immature Gran # (Auto) Neut # (Auto) Lymph # (Auto) [place] # (Auto) Eos # (Auto) Baso # (Auto) Sodium Potassium Chloride Carbon Dioxide Anion Gap BUN Creatinine Est Cr Clr Drug Dosing Est GFR ( Amer) Est GFR (Non-Af Amer) BUN/Creatinine Ratio Glucose Calcium Total Bilirubin AST ALT Alkaline Phosphatase Total Protein Albumin Globulin Albumin/Globulin Ratio TSH Urine Color Urine Appearance Urine pH Ur Specific [place] Urine Protein Urine Glucose (UA) Urine Ketones Urine Blood Urine Nitrite Urine Bilirubin Urine Urobilinogen Ur Leukocyte Esterase Urine WBC (Auto) Urine RBC (Auto) U Hyaline Cast (Auto) U Epithel Cells (Auto) Urine Bacteria (Auto) Urine Yeast POC Ur Test NEG Salicylates Urine Opiates Screen Ur Methadone, Qual Acetaminophen Urine Barbiturates Ur Phencyclidine (PCP) U Amphetamin/Meth Scrn MDMA (Ecstasy) Screen U Benzodiazepines Scrn Ur Cocaine Metabolite U Marijuana (THC) Screen Ethyl Alcohol mg/dL Hospital Course (1) Schizoaffective disorder, bipolar type: 02/05 -current episode depressed. Poorly able to describe symptoms, time course, and stressors. -Records from [facility] reviewed; attempt to get outpatient records, but it appears she has been seen at multiple places recently and we will need to clarify this. Attempt to get collateral from her roommate or other friend or family member. -Continue most recent known psychotropic medications (from [facility] discharge 01/16/2020, while awaiting more recent outpatient records): Propanolol 10 mg daily for anxiety, trazodone 50 mg at bedtime (with additional 50 mg dose if needed for insomnia), and trihexyphenidyl 2 mg daily. We will need to contact her pharmacy to clarify the dose of her Prolixin decanoate and that she got it yesterday. -Patient is unable to provide any information about past med trials, so we will attempt to get additional records. -Coordinate care with her rn case management, Koki -Continue inpatient psychiatric treatment on a 201 voluntary commitment. Encourage group attendance and participation, work on healthy coping skills and discharge safety plan. 02/06 - continue current medication management. - Pharmacy, [facility] at [place], confirms that she is on Prolixin Decanoate 25 mg IM, trazodone 25 mg nightly, propranolol 10 mg twice daily, dependent Hydramine 50 mg nightly, potassium chloride 10 mEq daily. Her last Prolixin Decanoate 25 mg IM was filled on February 04 and she picked it up on February 05. - Encourage group attendance and participation but patient is extremely withdrawn socially. - Nursing staff was notified to check her fluid intake because she does not seem to be comfortable asking other people what she needs. -Summary of Psychiatric evaluation by Dr. Lion Avila from [facility] program on Jan 22 2020 is under subjective. 02/07 -Continue current medication regimen. -Collect collateral from [facility] program and rn case management to find out when she got her injection. -Her recent worsening depressive symptoms might be due to low serum level of Prolixin Decanoate because she was admitted 1 day after her injection per patient if she informs us of correct information. -Patient tolerated a group exercise activity this morning and physical-activity related groups will be helpful for her to be engaged in interaction with peers and to promote her physical acitivities during the day since patient complains of insomnia at night. -Artane in the morning has been declined due to fatigue and it is scheduled to HS. Patient was advised to ask for Cogentin if she develops worsening involuntary movements in extremities since her tremors and involuntary movements in upper extremities improved today but Cogentin will be scheduled to 0.5 mg twice a day if she has problem requesting as needed medications. AIMS=0 and no TD noted. 02/08 -pt refuses to take benzotropine doses but comfortable with Artane. given this and given s/e from Prolixin added 1mg Artane am dose to her Artane 2mg has dose (pt not willing to take 2nd dose of arcane earlier then has dosing) - given middle insomnia concerns, raised trazodone to 25mg has plus 25mg has pen insomnia over pt iwillingnes to try higher dose but only 25mg of it being as a scheduled dose -maintained rest of treatment plan unchanged 02/09 -stopped prn vsitaril doses added benadryl 50mg hs prn insomnia changed trazodone to 50mg hs scheduled preparing for meeting with [facility] staff and likely upcoming discharge 02/10 -Discharge planning meeting with outpatient treatment team prior to discharge. -Patient requesting discharge, presenting symptoms have resolved, and she is appropriate for outpatient treatment. (2) Suicidal ideation: Every 15 minute checks for safety. Work on healthy coping skills and discharge safety plan. Recommend family meeting with her roommate or other support. (3) GERD (gastroesophageal reflux disease): Continue home dose of pantoprazole (4) Nicotine dependence: Offer nicotine replacement for cravings, ongoing smoking cessation education, outpatient follow-up with her psychiatrist. Mental Health & Subst Abuse Tx Psychiatrist Name of Psychiatrist: [facility] - Dr. Avila Time of Appointment with Psychiatrist: Also part of the tx team: Kel Sanchez, Gladys Palomo, Chrissy Dupree Psychiatric Appointment Comment: Julita Cottrell Therapist Name of Therapist: Aj Lilian Therapist's Therapy Appointment Comment: [address] [facility] [address], [place] [address] Instructional Technology Facilitator Name of Instructional Technology Facilitator: JESSIE ALEXANDRA Nicol Telles Stephen Phone Number for Instructional Technology Facilitator: [email or web address] Case Management Appointment Comment: Will follow up as scheduled Post Discharge Appointments Primary Care Physician Name Of Family Doctor: . Smoking Cessation Counseling Tobacco Cessation Medication Prescribed at Discharge: Offered & Prescribed Contact Information Discharge Discharge Address: [address] [place] [address], [address], [place] [id number] Discharge Plan Discharge Items Patient Disposition: Home - Self-Care Reason For Visit: SCHIZOPHRENIA Discharge Diagnosis: schizoaffective disorder, bipolar type Activity: Per Instructions section Non-emergency contact: Primary Care Provider, Psychiatrist, Therapist and Frame Table Operator Call non-emergency contact if: you have any medication questions and your symptoms worsen Follow-up/Referrals: PCP,NO [Primary Care Provider] - Diet: Regular Addtl Attending Provider Instructions: SPECIAL CARE INSTRUCTIONS: 1. Follow through with your scheduled aftercare appointments. If unable to keep an appointment, please call to reschedule. 2. Take your medication only as prescribed. Medication should not be changed or stopped without the approval of your doctor. In the event of worsening symptoms or concerns about side effects, contact your doctor immediately. 3. Utilize new healthy coping skills, anger management skills, and stress management skills learned during your hospitalization. Journal feelings and process them with a support person. Identify stressors or situations that may result in relapse, deterioration or inappropriate behaviors and develop a plan to deal with those issues. 4. If your coping skills are ineffective and you are in crisis, contact your outpatient providers for direction. If unable to reach your providers, please call the CAN HELP LINE AT or go to the closest Emergency Room. 5. Avoid alcohol and un-prescribed drugs. 6. You have been provided with the Mental Health Advance Directives Pamphlet for your review. AFTERCARE APPOINTMENTS: * Please call your insurance company prior to your scheduled appointment to confirm your aftercare providers are covered. Take your insurance information to your appointments. WHO TO CALL AND WHEN: Medical Emergencies: For questions or emergencies related to your hospital stay, please contact the Inpatient Behavioral Health Unit at [phone]. A day treatment clinician/art therapist is on-call 21/03 for the Behavioral Health Unit for emergencies At any time you feel your situation is an emergency, you may also call 911 immediately. Your Doctors Instructions noted above were prepared by provider Rolanda Ohara MD. Pending Studies at Discharge: No Stand-Alone Forms: My [facility], Smoking Cessation, Suicide Prevention Resources Medications and DC Order Prescriptions: New nicotine [Nicoderm CQ] 21 mg/24 hr Patch 24 Hour 21 mg transdermal QAM Qty: 7 RF: 0 Continued propranolol 10 mg tablet 10 mg PO DAILY RF: 0 fluphenazine decanoate 25 mg/mL solution 25 mg IM RF: 0 pantoprazole 40 mg tablet,delayed release (DR/EC) 40 mg PO DAILY RF: 0 trihexyphenidyl 2 mg tablet 2 mg PO DAILY RF: 0 Changed trazodone 50 mg tablet 25 mg PO HS Qty: 0 RF: 0 Discontinued topiramate 100 mg tablet 100 mg PO DAILY RF: 0 Discharge Orders: Discharge Order (Routine); Ordered 02/11/20 Ordered By: Rolanda Ohara Admission Data Admit Date/Time: 02/06/20 03:18 Attending Provider: Rolanda Ohara Admit Provider: Sissy Davis Primary Care Provider: PCP,NO Other Interventions: PSY Interdisciplinary Discharge Planning Last Done: 02/10/20 11:40 Coding Level of Care Code 77819 D/C day mgmt > 30 min Diagnoses Schizoaffective disorder, bipolar type F25.0 Suicidal ideation R45.851 GERD (gastroesophageal reflux disease) K21.9 Nicotine dependence F17.200
== END 2020-02-11 12:09 | disposition home or self-care (01) | DRG 885 ==
LOC: ED 23:47 → 3S 02-06 03:18